=== PATIENT | male | born 1975 | race Hispanic/Latino ===

== ENCOUNTER 2019-04-14 01:56 | Emergency (ER) | payer BC, OTHER ==
[2019-04-14] MEDS ORDERED: MORPHINE SULFATE 4 MG/1ML SYG ONE (02:37)
[2019-04-14] MEDS ORDERED: DIAZEPAM 2 MG TAB ONE (02:37)
[2019-04-14] MEDS ORDERED: KETOROLAC TROMETHAMINE 60 MG/2 ML VIAL ONE (02:37)
== END 2019-04-14 03:13 | disposition home or self-care (01) ==
LOC: EDH 01:56
DX: M62.830 Muscle spasm of back (principal); M54.5 Low back pain
CPT/HCPCS: 96372 ×2; 99284; J1885; J2270

== ENCOUNTER 2024-07-30 23:58 | Emergency (ER) | payer BC, OTHER ==
[~2024-07-30] VITALS: Ht 172.7 cm; Wt 90.7 kg
--- NOTE | 2024-07-31 00:04 | NUR ---
UA CUP PROVIDED
[2024-07-31 00:19] LABS: BASOPHILS # (AUTO) 0.03 K/uL (0.00-0.20); BASOPHILS % (AUTO) 0.3 % (0.0-5.0); EOSINOPHILS # (AUTO) 0.12 K/uL (0.00-0.70); EOSINOPHILS % (AUTO) 1.3 % (0.0-8.0); HEMATOCRIT 51.6 % (42-54); IMMATURE GRANULOCYTE ABSOLUTE 0.03 K/uL (0-1); LYMPHOCYTES # (AUTO) 1.7 K/uL (1.0-4.8); LYMPHOCYTES % (AUTO) 17.5 % (21.0-51.0); MEAN CORPUSCULAR HEMOGLOBIN 26.1 pg (27.0-33.0); MEAN CORPUSCULAR HGB CONC 32.4 g/dL (32.0-36.0); MEAN CORPUSCULAR VOLUME 80.8 fL (79-99); MONOCYTES # (AUTO) 0.9 K/uL (0.1-1.0); MONOCYTES % (AUTO) 9.2 % (3.0-13.0); NEUTROPHILS # (AUTO) 6.9 K/uL (1.8-7.7); NEUTROPHILS % (AUTO) 71.4 % (40.0-77.0); PLATELET COUNT (AUTO) 218 K/uL (130-400); RED BLOOD CELL COUNT(AUTO) 6.39 MIL/uL (4.50-6.20); RED CELL DISTRIBUTION WIDTH 15.9 % (11.0-15.5); WHITE BLOOD COUNT (AUTO) 9.6 K/uL (4.8-10.8)
[2024-07-31 00:24] LABS: APPEARANCE,URINE CLEAR (CLEAR); BILIRUBIN,URINE NEGATIVE (NEGATIVE); COLOR,URINE YELLOW (YELLOW); GLUCOSE, URINE (UA) NEGATIVE (NEGATIVE); KETONES,URINE 20 mg/dL (NEGATIVE); LEUKOCYTE ESTERASE ,URINE NEGATIVE Leu/uL (NEGATIVE); NITRATE,URINE NEGATIVE (NEGATIVE); OCCULT BLOOD,URINE NEGATIVE (NEGATIVE); PROTEIN,URINE NEGATIVE (NEGATIVE); UROBILINOGEN,URINE 0.2 mg/dL (0.2-1.0)
[2024-07-31 00:33] LABS: CREATININE 1.2 mg/dL (0.5-1.3); POTASSIUM 4.1 mmol/L (3.5-5.1)
[2024-07-31 00:34] LABS: ADD UA MICROSCOPIC YES
[2024-07-31 00:35] LABS: RBC,URINE 0-1 /HPF (0-1)
--- NOTE | 2024-07-31 00:57 | ERN ---
ED Note History of Present Illness Stated Complaint: LOW BP, DIZZINESS Chief Complaint: Multiple Complaints Time Seen by MD: 00:19 Dictation: This is a 48-year-old male who presented to the emergency room stating that he woke up at 3:00 a.m. feeling dizzy and he checked his blood pressure which was around 100/60. He also reported nausea and given this he came into the ER for further evaluation. He denied any chest pain dyspnea seizures motor weakness diplopia. No history of hearing loss or ringing in the ears but he does have some neck pain and feels dizzy with movement of the head. Temperature 97.8 pulse 67 respirations 20 blood pressure 138/83 with a pulse oximetry of 98% on room air He has a history of obstructive sleep apnea syndrome with the issues with the CPAP Tarrs so he has not used it for the past few days Allergies: Coded Allergies: No Known Drug Allergies (Unverified Allergy, Unknown, 04/14/19) Home Meds Active Scripts Azithromycin (Azithromycin) 250 Mg Tablet, 1 TAB PO AD for 5 Days, #6 TAB 0 Refills 2 the first day followed by 1 for days 2-5 Prov:YELITZA VALENZUELA MD 07/31/24 Meclizine HCl (Meclizine HCl) 25 Mg Tablet, 25 MG PO TID for vertigo, #30 TAB 0 Refills Prov:YELITZA VALENZUELA MD 07/31/24 Prednisone (Prednisone) 20 Mg Tablet, 1 TAB PO AD for 6 Days, #14 TAB 0 Refills TAKE 1 TAB BY MOUTH THREE TIMES PER DAY X3 DAYS, THEN TAKE 1 TAB BY MOUTH TWICE A DAY X2 DAYS, THEN TAKE 1 TAB BY MOUTH ONCE A DAY X1 DAY. Prov:YELITZA VALENZUELA MD 07/31/24 Past Medical History Past Medical History: No Pertinent History, Hypertension, Other (Obstructive sleep apnea syndrome) Surgical History: Other Surgical History Other: HERNIA Family History: Negative Social History: ETOH RN Note Reviewed/Agreed w/PFSH: Yes Review of System Dictation As described in the history of present illness dizziness with nausea Constitutional: Negative for fever,chills, and weight loss Eyes: Negative for injury, pain,redness, and discharge ENT: Negative for injury,pain or swelling Cardiovascular: Negative for chest pain, palpitations, and edema Respiratory: Negative for shortness of breath, cough, and wheezing, Abdomen/GI: Negative for abdominal pain, nausea, vomiting, diarrhea, and constipation Back: Negative for injury and pain : Negative for injury, bleeding and discharge MS/Extremity: Negative for injury and deformity Skin: Negative for rash, and discoloration Neuro: Negative for headache, weakness, numbness, tingling, and seizure Psych: Negative for suicide ideation, homicidal ideation, and hallucinations Initial Vital Sign VS Vital Signs Date Time Temp Pulse Resp B/P (MAP) Pulse Ox O2 Delivery O2 Flow Rate FiO2 07/31/24 00:00 97.9 67 20 138/83 98 Room Air 07/31/24 02:38 0 21 Physical Exam Dictation General: awake, alert, NAD Head/Face: Normocephalic, atraumatic Eyes: PERRL, EOMI, vision at baseline ENT: oral cavity clear, TMs clear, no signs of infection Neck: Trachea midline, supple, no nuchal rigidity Cardiovascular: RRR, normal S1/S2, No MRGs, no JVD Respiratory: CTAB, no respiratory distress, No rales or wheezes Abdomen: Soft, non-tender, non-distended, normal bowel sounds, no guarding or rebound. Skin: Warm, dry, normal turgor, no rash MS/Extremity: Pulses equal, no cyanosis, neurovascular intact, FROM Neuro: COAx4, GCS 15, strength 5/5, CN 2-12 intact, normal cerebellar exam, normal gait, Psych: Normal behavior, mood, and affect normal Extremities-trace edema without any palpable cords, Homans sign is negative Results (Laboratory/Radiology) Laboratory/Radiology Laboratory Tests Test 07/31/24 00:11 07/31/24 01:50 White Blood Count 9.6 K/uL (4.8-10.8) Red Blood Count 6.39 MIL/uL (4.50-6.20) H Hemoglobin 16.7 g/dL (14.0-18.0) Hematocrit 51.6 % (42-54) Mean Corpuscular Volume 80.8 fL (79-99) Mean Corpuscular Hemoglobin 26.1 pg (27.0-33.0) L Mean Corpuscular Hemoglobin Concent 32.4 g/dL (32.0-36.0) Red Cell Distribution Width 15.9 % (11.0-15.5) H Platelet Count 218 K/uL (130-400) Mean Platelet Volume 10.5 fL (7.5-10.5) Immature Granulocyte % (Auto) 0.3 % (0-1) Neutrophils (%) (Auto) 71.4 % (40.0-77.0) Lymphocytes (%) (Auto) 17.5 % (21.0-51.0) L Monocytes (%) (Auto) 9.2 % (3.0-13.0) Eosinophils (%) (Auto) 1.3 % (0.0-8.0) Basophils (%) (Auto) 0.3 % (0.0-5.0) Neutrophils # (Auto) 6.9 K/uL (1.8-7.7) Lymphocytes # (Auto) 1.7 K/uL (1.0-4.8) Monocytes # (Auto) 0.9 K/uL (0.1-1.0) Eosinophils # (Auto) 0.12 K/uL (0.00-0.70) Basophils # (Auto) 0.03 K/uL (0.00-0.20) Absolute Immature Granulocyte (auto 0.03 K/uL (0-1) Nucleated Red Blood Cells 0.0 % (0.0-0.19) Urine Color YELLOW (YELLOW) Urine Appearance CLEAR (CLEAR) Urine pH 6.0 (5.0-8.0) Urine Specific Dawson 1.020 (1.001-1.031) Urine Protein NEGATIVE mg/dL (NEGATIVE) Urine Glucose (UA) NEGATIVE mg/dL (NEGATIVE) Urine Ketones 20 mg/dL (NEGATIVE) H Urine Occult Blood NEGATIVE (NEGATIVE) Urine Nitrate NEGATIVE (NEGATIVE) Urine Bilirubin NEGATIVE mg/dL (NEGATIVE) Urine Urobilinogen 0.2 mg/dL (0.2-1.0) Urine Leukocyte Esterase NEGATIVE Antonia/uL Urine RBC 0-1 /HPF (0-1) Urine WBC None /HPF (0-1) Urine Bacteria None /HPF (None Seen) Sodium Level 137 mmol/L (136-145) Potassium Level 4.1 mmol/L (3.5-5.1) Chloride Level 101 mmol/L (101-111) Carbon Dioxide Level 31 mmol/L (21-32) Blood Urea Nitrogen 20 mg/dL (7-18) H Creatinine 1.2 mg/dL (0.5-1.3) Glomerular Filtration Rate Calc 74 mL/min (>90) Random Glucose 99 mg/dL (70-105) Total Calcium 9.4 mg/dL (8.5-10.1) Troponin I High Sensitivity 6 ng/L (4-75) Influenza Type A Antigen Negative For Type A Influenza Type B Antigen Negative For Type B SARS-CoV-2 Antigen (Rapid) PRESUMPTIVE NEGATIVE Labs Reviewed?: Yes ED Course ED Course Orders Procedure Category Date Status Time 12 Lead Ekg Tracing- EKG 07/31/24 Resulted Technical 00:04 Chest 1vw RAD 07/31/24 Resulted 00:04 Troponin I High LAB 07/31/24 Complete Sensitivity 00:04 Urinalysis Profile LAB 07/31/24 Complete 00:04 Cbc With Differential LAB 07/31/24 Complete 00:04 Basic Metabolic Panel LAB 07/31/24 Complete 00:04 Influenza Type A & B, LAB 07/31/24 Complete Rapid 01:41 Covid19 (Sars Antigen LAB 07/31/24 Complete Rapid) 01:41 Methylprednisolone PHA 07/31/24 Complete Succ 125mg (Solu-Medr 02:00 Meclizine Hcl 25 Mg PHA 07/31/24 Complete (Antivert 25 Mg) 02:00 Ondansetron Odt 4mg PHA 07/31/24 Complete Tab (Zofran 4mg Odt) 02:00 Current Medications Medications (Trade) Dose Ordered Sig/Vandana Route PRN Reason Start Time Stop Time Status Last Admin Dose Admin Meclizine HCl (ANTIvert 25 mg) 25 mg ONCE ONCE PO 07/31/24 02:00 07/31/24 02:01 DC 07/31/24 02:19 Methylprednisolone Sodium Succinate (Solu-medROL 125MG) 60 mg ONCE ONCE IM 07/31/24 02:00 07/31/24 02:01 DC 07/31/24 02:20 Ondansetron HCl (zoFRAN 4MG ODT) 4 mg ONCE ONCE SL 07/31/24 02:00 07/31/24 02:01 DC 07/31/24 02:19 Vital Signs Date Time Temp Pulse Resp B/P (MAP) Pulse Ox O2 Delivery O2 Flow Rate FiO2 07/31/24 02:38 97.9 62 17 138/80 96 Room Air* 0 21 07/31/24 00:00 97.9 67 20 138/83 98 Room Air We will perform diagnostic labs, advanced imaging and administer medications according to the patient's complaint. Once the results are available, will review and personally interpreted the labs to rule out any acute life- threatening emergency the trach require immediate intervention and treatment. I will then re-evaluate the patient after treatment and diagnostic exams have return to determine whether the patient requires any further testing, can safely be discharged home or need further admission to hospital for additional treatment and evaluation. Reviewed labs CBC is with a normal limits except for mild erythrocytosis with a hemoglobin of 16.7 BNP 7 shows a BUN and creatinine of 20 and 1.2 troponins are unremarkable Urinalysis is negative for any infection EKGs unremarkable Chest x-ray is unremarkable for any acute infiltrate although chronic interstitial markings are slightly prominent I had a long discussion with the patient and his spouse that perhaps he may be mildly dehydrated which could be responsible for his dizziness the other possibility is that he has ZEYNEP which is untreated and vasovagal and autonomic symptoms are not uncommon. I also educated him on a possible labyrinthitis. They verbalized full understanding. He responded very well to the symptomatic treatment. Medical Decision Making MDM MDM: Differential diagnosis: Dizziness-mild dehydration, viral syndrome, valvular disease Rationale: Tests considered and ordered secondary to shared decision making include: Previous outside records reviewed: Old ER visits. Risk of complication and/or morbidity or mortality of patient management: None Medications-Per medication reconciliation Need for hospitalization: Patient does not meet criteria for hospitalization. Need for emergency major/minor surgery: No There are no social concerns with this patient. Prescription drug management Prescriptions will include symptomatic care Patient's prior external medical records from other ER visits were reviewed by me as indicated. Prior testing and results from previous visits were reviewed. Prior tests were taken into account with medical decision making and resource utilization, independent historian/historians were used to obtain complete medical history. I independently interpreted the test that were performed, results were reviewed by me and considered findings on radiology if ordered. Medical management and examination interpretation discussions were had by me with other qualified healthcare professionals as indicated for the patient's care. Problem List Problem List: (1) Labyrinthitis (2) Dizziness (3) Dehydration (4) Acute kidney injury DX & DISP Disposition: Discharge Departure Impression: Primary Impression: Dizziness Additional Impressions: Acute kidney injury, Dehydration, Labyrinthitis Condition: Stable Scripts Azithromycin (Azithromycin) 250 Mg Tablet 1 TAB PO AD for 5 Days, #6 TAB 0 Refills 2 the first day followed by 1 for days 2-5 Prov: YELITZA VALENZUELA MD 07/31/24 Meclizine HCl (Meclizine HCl) 25 Mg Tablet 25 MG PO TID for vertigo, #30 TAB 0 Refills Prov: YELITZA VALENZUELA MD 07/31/24 Prednisone (Prednisone) 20 Mg Tablet 1 TAB PO AD for 6 Days, #14 TAB 0 Refills TAKE 1 TAB BY MOUTH THREE TIMES PER DAY X3 DAYS, THEN TAKE 1 TAB BY MOUTH TWICE A DAY X2 DAYS, THEN TAKE 1 TAB BY MOUTH ONCE A DAY X1 DAY. Prov: YELITZA VALENZUELA MD 07/31/24 Additional Instructions: Patient and the caregiver have been informed of all the diagnostic tests and the imaging conducted during the today's visit to the emergency room and has verbalized understanding of the results I have personally reviewed and interpreted all diagnostic exams performed here in the ER today as well as the vital signs documented by the nursing staff. The patient is now being discha rged to home and should follow up with the primary care physician or the specialist as directed by the ER staff. Follow-up with primary care provider in 1 to 2 days. Take medications as directed here in the emergency room. Okay to continue home medications unless otherwise discussed during your visit in the emergency room today. Return to your nearest emergency room if symptoms worsen or if there is no improvement. Call 911 if you need immediate assistance. Take Tylenol or Motrin [id number] as needed and if no contraindications are present. Increase oral hydration. A wound culture or urine culture was ordered here in the emergency room department please follow-up with primary care provider and advise them to get repeat ports from our facility. If you had any Raymond wrap/splints that were applied here, please do not remove them until you see your primary care or specialty. Referrals: SELF,REFERRAL (PCP) YELITZA VALENZUELA MD Jul 31, 2024 00:57
--- NOTE | 2024-07-31 01:50 | NUR ---
COVID AND FLU SWABS COLLECTED AND SENT
--- NOTE | 2024-07-31 02:07 | NUR ---
PT CARE ASSUMED AT THIS TIME
[2024-07-31] MEDS: mecliZINE HCL 25 MG TABLET PO ONE (02:19)
[2024-07-31] MEDS: ondanSETRON ODT 4MG TAB SL ONE (02:19)
[2024-07-31 02:20] LABS: COVID19 (SARS ANTIGEN RAPID) PRESUMPTIVE NEGATIVE (NEGATIVE); INFLUENZA TYPE A Negative For Type A (NEGATIVE); INFLUENZA TYPE B Negative For Type B (NEGATIVE)
[2024-07-31] MEDS: Solu-medROL 125MG VIAL IM ONE (02:20)
[2024-07-31] MEDS ORDERED: PRED20TA3 PO (02:23)
[2024-07-31] MEDS ORDERED: MECL-302 PO (02:23)
[2024-07-31] MEDS ORDERED: AZIT250T9 PO (02:28)
[2024-07-31 02:38] VITALS: BP 138/80; PULSE 62; RESP 17; TEMP 97.8; O2SAT 96
--- NOTE | 2024-07-31 07:27 | EKG ---
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
--- NOTE | 2024-07-31 08:32 | HMCIMG ---
PORTABLE CHEST RADIOGRAPH INDICATION: DIZZINESS COMPARISON: None FINDINGS: Heart size is normal. The pulmonary vascularity and dang appear normal. No abnormal pulmonary parenchymal opacity or consolidation identified. No significant pleural effusion noted. No pneumothorax detected. IMPRESSION: No radiographic evidence for any acute cardiopulmonary process.
== END 2024-07-31 02:48 | disposition home or self-care (01) ==
LOC: EDH 23:58
DX: R42 Dizziness and giddiness (principal); N17.9 Acute kidney failure, unspecified; E86.0 Dehydration; H83.09 Labyrinthitis, unspecified ear; Z20.822 Contact with and (suspected) exposure to COVID-19
CPT/HCPCS: 99285; 87426; 84484; 80048; 85025; 87804 ×2; 81001; 36415; 71045; 96372; 93005; J2919